=== PATIENT | female | born 1955 | race Caucasian/White ===

== ENCOUNTER 2021-07-01 17:24 | Emergency (ER) | payer MEDICARE ==
[2021-07-01 17:35] VITALS: BP 119/69
--- NOTE | 2021-07-01 18:04 | XRAY Report ---
PROCEDURE: Wrist 4 View LT INDICATIONS: Trauma TECHNIQUE: 4 views of the wrist were acquired. COMPARISON: None FINDINGS: Bones: There is a comminuted, impacted fracture of the distal radius, with dorsal angulation of the f racture fragments. There is intra-articular involvement seen. No radiocarpal dislocation can be seen. Age-appropriate degenerative changes are seen. Scaphoid view: No scaphoid fractures are seen. Soft tissues: No suspicious soft tissue calcifications. IMPRESSION: Impacted, dorsally angulated intra-articular comminuted fracture of the distal radius. Reviewed by: Ramiro Haley MD on 07/01/2021 5:02 PM ALONSO Approved by: Ramiro Haley MD on 07/01/2021 5:02 PM ALONSO Station ID: [id number]
--- NOTE | 2021-07-01 18:12 | ED Physician Documentation ---
PD HPI UPPER EXT INJURY - Stated complaint Stated Complaint: LEFT WRIST INJURY - Chief complaint Chief Complaint: Trauma Ext - History obtained from History obtained from: Patient - History of Present Illness Location: Left, Wrist Type of injury: Fall Where injury occurred: Street Timing - onset: Today Timing - duration: Hours Timing - details: Abrupt onset Improved by: Rest, Ice, Immobilization Worsened by: Moving, Palpating Associated symptoms: Swelling. No: Weakness, Numbness Contributing factors: No: Anticoagulated, Prior ortho surgery Similar symptoms before: Has not had sx before Recently seen: Not recently seen - Additonal information Additional information: 65-year-old female walking toward the beach in [place] had a fall on the [place] and fell onto her outstretched left hand. She has some pain in her left anterior chest wall which is mild. She has a broken wrist on the left side with some deformity. She is using ice and that seems to help a little bit. She has some deformity. She is visiting the area and was expecting to leave by plane tomorrow. Review of Systems Constitutional: denies: Fever Eyes: denies: Decreased vision Ears: denies: Ear pain Nose: denies: Congestion Cardiac: denies: Palpitations Respiratory: denies: Dyspnea, Cough GI: denies: Nausea, Vomiting PD PAST MEDICAL HISTORY - Present Medications Home Medications: Ambulatory Orders Medication Instructions Recorded Confirmed HYDROcod/ACETAM 5/325 [[place] 5/325] 1 - 2 tablet PO Q6H PRN #14 tablet 07/01/21 - Allergies Allergies/Adverse Reactions: Allergies Allergy/AdvReac Type Severity Reaction Status Date / Time Sulfa (Sulfonamide Allergy Rash Verified 07/01/21 17:35 Antibiotics) PD ED PE NORMAL - Vitals Vital signs reviewed: Yes (normal ) - General General: Alert and oriented X 3, No acute distress, Well developed/nourished - HEENT HEENT: Atraumatic, PERRL, EOMI - Neck Neck: Supple, no meningeal sign - Cardiac Cardiac: RRR, No murmur - Respiratory Respiratory: No respiratory distress, Clear bilaterally, Other (minimal point tenderness to left anterior chest wall ) - Abdomen Abdomen: Soft, Non tender - Back Back: No CVA TTP, No spinal TTP - Derm Derm: Normal color, Warm and dry, No rash - Extremities Extremities: Other (There is fracture deformity to the left wrist with some dorsal angulation of the distal radius. Distal neurovascular components intact. No apparent injury to the shoulder or elbow.) - Neuro Neuro: Alert and oriented X 3, field evidence technician 2-12 intact, No motor deficit, No sensory deficit, Normal speech Eye Opening: Spontaneous Motor: Obeys Commands Verbal: Oriented GCS Score: 15 - Psych Psych: Normal mood, Normal affect Results - Vitals Vitals: Vital Signs - 24 hr 07/01/21 17:31 Temperature 36.3 C L Heart Rate 74 Respiratory 16 Rate Blood Pressure 119/69 O2 Saturation 96 Oxygen O2 Source Room air - Rads (name of study) wrist Radiology: Prelim report reviewed (Impression: Impacted, dorsally angulated intra-articular comminuted fracture of the distal radius.), EMP read indepedently, See rad report wrist post reduction Radiology: Prelim report reviewed Procedures - Splint (location) forearm L Splint applied by: Tech Type of splint: Fiberglass, Sugar tong Other: Patient tolerated well, No complications, Neurovascular intact, Good alignment, Sling provided - Reduction Body part reduced: Left, Wrist Fracture or dislocation: Fracture Anesthesia: Hematoma block, Lidocaine (enter cc) (4cc), Marcaine (enter cc) (4cc) Reduction aftercare: NV intact, Xray confirms reduction, Alignment improved, Splint applied, Sling, Patient tolerated well PD MEDICAL DECISION MAKING - ED course Complexity details: reviewed results, re-evaluated patient, considered differential, d/w patient ED course: 65-year-old female with a FOOSH on the left wrist has a fracture deformity and we were able to provide a hematoma block and fracture reduction. She is placed into a sugar tong splint. She has a comminuted intra-articular fracture. She will need follow-up with orthopedics this week. She is visiting from out of the area. Departure - Departure Disposition: 01 Home, Self Care Clinical Impression: Wrist fracture, left Qualifiers: Encounter type: initial encounter Fracture type: closed Qualified Code(s): S62.102A - Fracture of unspecified carpal bone, left wrist, initial encounter for closed fracture Condition: Stable Instructions: ED Fx Wrist General Follow-Up: Will Dias MD [Provider Admit Priv/Credential] - Prescriptions: HYDROcod/ACETAM 5/325 [[place] 5/325] 1 - 2 tablet PO Q6H PRN #14 tablet PRN Reason: Pain
[2021-07-01] MEDS ORDERED: LIDOCAINE 1% 2 ML VIAL SUBQ STA (18:21)
[2021-07-01] MEDS ORDERED: BUPIVACAINE 0.5% PF 10 ML VIAL SUBQ STA (18:21)
--- NOTE | 2021-07-01 20:11 | XRAY Report ---
PROCEDURE: Wrist 2 View LT INDICATIONS: post reduction TECHNIQUE: 2 views of the wrist were acquired. COMPARISON: Wrist radiographs earlier today. FINDINGS: Bones: Impacted distal radius fracture. Casting material is now place. There is improved alignment po st casting. Dorsal angulation is improved. No suspicious bony lesions. Soft tissues: No suspicious soft tissue calcifications. IMPRESSION: Improved alignment post casting of the distal radius fracture. Reviewed by: Steven Arango MD on 07/01/2021 8:10 PM PDT Approved by: Steven Arango MD on 07/01/2021 8:10 PM PDT Station ID: [id number]
== END 2021-07-01 20:05 | disposition home or self-care (01) ==
LOC: ED 17:24
DX: S62.102A Fracture of unspecified carpal bone, left wrist, initial encounter for closed fracture (principal); W01.0XXA Fall on same level from slipping, tripping and stumbling without subsequent striking against object, initial encounter; Y93.01 Activity, walking, marching and hiking; Y92.832 Beach as the place of occurrence of the external cause
CPT/HCPCS: 25605; 99283